=== PATIENT | female | born 1990 | race Caucasian/White ===

== ENCOUNTER 2018-04-13 11:39 | Emergency (ER) | payer BC | END 2018-04-13 12:50 | disposition home or self-care (01) | LOC: FTE 11:39 | DX: T24.131A Burn of first degree of right lower leg, initial encounter (principal); E11.9 Type 2 diabetes mellitus without complications; X19.XXXA Contact with other heat and hot substances, initial encounter; Y92.9 Unspecified place or not applicable | CPT/HCPCS: 99283 ==